=== PATIENT | male | born 1970 | race Caucasian/White ===

== ENCOUNTER 2017-04-12 11:32 | Emergency (ER) | payer BC ==
[2017-04-12] MEDS ORDERED: Lidocaine 1% with EPINEPHrine 1:100,000 20 ML MDV ONE (11:59)
[2017-04-12] MEDS ORDERED: Diphtheria,Pertussis(Acell),Tetanus Vaccine 0.5 ML Syringe IM ONE (12:15)
[2017-04-12 13:54] VITALS: BP 147/100
--- NOTE | 2017-04-15 11:54 | EDM.PDOC ---
ED HPI GENERAL MEDICAL PROBLEM - General Chief Complaint: Laceration Stated Complaint: "I cut my head" Time Seen by Provider: 04/12/17 12:00 Source of Information: Reports: Patient History Limitations: Reports: No Limitations - History of Present Illness INITIAL COMMENTS - FREE TEXT/NARRATIVE: Alpesh is a 47 yo male who presents ambulatory to the ER with complaints of a laceration to the top of his head. He states he was stepping down off of a tractor and missed the last step. States he fell backwards catching the top of his head on the edge of grain trailer and cutting it. Denies any loss of consciousness. States it immediately started to bleed a lot and felt he would need stitches. Incident happened about 1 hour prior to arrival. Onset: Today Onset Date: 04/15/17 Onset Time: 11:00 Location: Reports: Head Associated Symptoms: Denies: Confusion, Headaches, Malaise, Nausea/Vomiting, Seizure, Weakness Head Pain Score (Numeric/FACES): 3 - Related Data Allergies Allergy/AdvReac Type Severity Reaction Status Date / Time benzocaine [From Solarcaine] Allergy Rash Verified 07/04/15 09:20 metoclopramide HCl Allergy Seizure Verified 07/04/15 09:19 [From Reglan] triclosan [From Solarcaine] Allergy Rash Verified 07/04/15 09:20 Past Medical History - Past Health History Medical/Surgical History: Denies Medical/Surgical History Social & Family History - Tobacco Use Smoking Status *Q: Never Smoker Second Hand Smoke Exposure: No - Alcohol Use Alcohol Use Frequency: Socially ED ROS GENERAL - Review of Systems Review Of Systems: ROS reveals no pertinent complaints other than HPI. Constitutional: Reports: No Symptoms HEENT: Reports: No Symptoms Skin: Reports: Wound (top of scalp) Neurological: Reports: No Symptoms. Denies: Confusion, Dizziness, Headache, Trouble Speaking, Difficulty Walking, Gait Disturbance Psychiatric: Reports: No Symptoms ED EXAM, SKIN/RASH Exam: See Below Exam Limited By: No Limitations General Appearance: Alert, No Apparent Distress (sitting on exam cart having normal conversation. ) Eye Exam: Bilateral Eye: EOMI, PERRL Ears: Normal External Exam, Normal Canal, Hearing Grossly Normal, Normal TMs Nose: Normal Inspection, No Blood Throat/Mouth: Normal Inspection, Normal Lips, Normal Teeth, Normal Oropharynx, Normal Voice, No Airway Compromise Head: Other (obvious flap laceration with controlled bleeding to top of scalp. ) Neck: Normal Inspection, Supple Neurological: Alert, Oriented, CN II-XII Intact, Normal Cognition, Normal Gait, No Motor/Sensory Deficits Skin: Wound/Incision (5cm X 5cm X 1cm flap laceration to top of scalp. ) ED SKIN PROCEDURES - Laceration/Wound Repair Middle Head Lac/Wound length In cm: 11 (5cm X 5cm X 1cm) Appearance: Subcutaneous, Irregular, Clean Distal NVT: Neuro & Vascular Intact Anesthetic Type: Local Local Anesthesia - Lidocaine (Xylocaine): 1% with EPI Local Anesthetic Volume: Other (15) Skin Prep: Chlorhexidine (Hibiciens), Sterile Drape, Other (shaved head) Exploration/Debridement/Repair: Wound Explored, Explored to Base, No Foreign Material Found Closed with: Sutures Suture Size: 4-0 # of Sutures: 19 Suture Type: Nylon, Interrupted Tetanus Status Addressed: Yes Course - Vital Signs Last Recorded V/S: Last Vital Signs Temp 97.6 F 04/12/17 11:50 Pulse 80 04/12/17 11:50 Resp BP 147/100 H 04/12/17 11:50 Pulse Ox 98 04/12/17 11:50 - Orders/Labs/Meds Meds: Medications Discontinued Medications Generic Name Dose Route Start Last Admin Trade Name Monty PRN Reason Stop Dose Admin Diphtheria/Tetanus/Acell Pertussis 0.5 ml 04/12/17 12:15 04/12/17 13:00 Adacel IM 04/12/17 12:16 0.5 ml .ONCE ONE Administration Lidocaine/Epinephrine Confirm 04/12/17 11:59 04/12/17 12:00 Xylocaine 1% With Epinephrine 1:100,000 Administered 04/12/17 12:00 20 ml Dose Administration 20 ml .ROUTE .STK-MED ONE Departure - Departure Time of Disposition: 13:10 Disposition: Home, Self-Care 01 Condition: Good Clinical Impression: Scalp laceration Qualifiers: Encounter type: initial encounter Qualified Code(s): S01.01XA - Laceration without foreign body of scalp, initial encounter - Discharge Information Instructions: Laceration Care, Adult Forms: ED Department Discharge Additional Instructions: 1) Sutures out in 7-10 days. Recommend clinic recheck in 7 days. 2) Keep area clean and dry. 3) May apply GISELA ointment or neosporin to area. Especially prior to showering. 4) Refrain from baths or soaking the head 5) Monitor for any neurological changes ( increased in headache, visual disturbances, etc..) please return to ER if any new onset of symptoms. 6) May take Tylenol and ibuprofen for discomfort. - Problem List & Annotations (1) Scalp laceration SNOMED Code(s): 650478043 Code(s): S01.01XA - LACERATION WITHOUT FOREIGN BODY OF SCALP, INITIAL ENCOUNTER Status: Acute Qualifiers: Encounter type: initial encounter Qualified Code(s): S01.01XA - Laceration without foreign body of scalp, initial encounter - Problem List Review Problem List Initiated/Reviewed/Updated: Yes - Assessment/Plan Plan: See additional instructions. Will recheck blood pressure at follow up appointment as well for suture removal. Wound care instructions given. Tdap updated today.
== END 2017-04-12 13:10 | disposition home or self-care (01) ==
LOC: CC.ED 11:32
DX: S01.01XA Laceration without foreign body of scalp, initial encounter (principal); W01.198A Fall on same level from slipping, tripping and stumbling with subsequent striking against other object, initial encounter; Z88.8 Allergy status to other drugs, medicaments and biological substances
CPT/HCPCS: 12004; 90471; 90715; 99283